=== PATIENT | male | born 1930 | race Caucasian/White ===

== ENCOUNTER 2018-05-04 15:41 | Emergency (ER) | payer MEDICARE ==
[2018-05-04 16:34] LABS: BASOPHILS # (AUTO) 0.1 10^3/uL (0.0-0.1); BASOPHILS % (AUTO) 0.7 %; EOSINOPHILS # (AUTO) 0.3 10^3/uL (0.0-0.7); EOSINOPHILS % (AUTO) 2.9 %; HGB - HEMOGLOBIN 14.3 g/dL (14.0-18.0); LYMPHOCYTES # (AUTO) 1.4 10^3/uL (1.5-3.5); LYMPHOCYTES % (AUTO) 15.9 %; MEAN CORPUSCULAR HEMOGLOBIN 33.3 pg (27.0-31.0); MEAN CORPUSCULAR HGB CONC 33.3 g/dL (32.0-36.0); MEAN CORPUSCULAR VOLUME 99.9 fL (80.0-94.0); MONOCYTES # (AUTO) 0.8 10^3/uL (0.0-1.0); MONOCYTES % (AUTO) 9.1 %; NEUTROPHILS # (AUTO) 6.3 10^3/uL (1.5-6.6); NEUTROPHILS % (AUTO) 71.4 %; PLT - PLATELET COUNT 305 10^3/uL (130-450); RED BLOOD COUNT 4.29 10^6/uL (4.70-6.10); RED CELL DISTRIBUTION WIDTH 13.3 % (12.0-15.0); WHITE BLOOD COUNT 8.8 x10^3/uL (4.8-10.8)
[2018-05-04 16:46] LABS: ALBUMIN 3.4 g/dL (3.2-5.5); BILIRUBIN,TOTAL 1.4 mg/dL (0.2-1.0); CREATININE 1.3 mg/dL (0.6-1.2); TOTAL PROTEIN 6.7 g/dL (6.7-8.2)
[2018-05-04] MEDS ORDERED: CYCLOBENZAPRINE 10 MG TABLET PO STA (17:42)
--- NOTE | 2018-05-04 17:44 | ED Physician Documentation ---
PD HPI BACK PAIN - Stated complaint Stated Complaint: BACK PAIN - Chief complaint Chief Complaint: Back Pain - History obtained from History obtained from: Patient, Family - History of Present Illness Timing - onset: How many days ago (several) Timing - duration: Days (several) Timing - details: Gradual onset Pain level max: 6 Pain level now: 6 Location: Upper, Right Quality: Pain, Spasm, Aching. No: Sharp, Tearing, Throbbing, Dull Associated symptoms: No: Fever, Weakness, Numbness, Incontinent of urine, Unable to urinate, Hematuria, Incontinent of stool Improves with: Rest Worsened by: Movement, Lifting Contributing factors: No: Lifting, Twisting, Trauma, Anticoagulated, Cancer, IVDA Similar symptoms before: Diagnosis (states has long history of back spasms. Feels similar.) Recently seen: Not recently seen - Additional information Additional information: Recently completed a drive from here to [place] and [facility]. Has been sleeping on different beds than usual. Review of Systems Ten Systems: 10 systems reviewed and negative Constitutional: denies: Fever, Chills Ears: denies: Ear pain Nose: denies: Rhinorrhea / runny nose, Congestion Throat: denies: Sore throat Cardiac: denies: Chest pain / pressure Respiratory: denies: Cough, Wheezing GI: denies: Abdominal Pain, Nausea, Vomiting, Diarrhea Skin: denies: Rash Musculoskeletal: denies: Neck pain Neurologic: denies: Focal weakness, Numbness PD PAST MEDICAL HISTORY - Past Medical History Past Medical History: Yes Cardiovascular: Atrial fibrillation HEENT: Glaucoma - Past Surgical History Past Surgical History: Yes General: Appendectomy HEENT: Tonsil/Adenoidectomy - Present Medications Home Medications: Ambulatory Orders Medication Instructions Recorded Confirmed Carvedilol [Coreg] 0 mg PO 05/04/18 Clopidogrel [Plavix] 0 mg PO DAILY 05/04/18 05/04/18 Cyclobenzaprine [Flexeril] 10 mg PO TID PRN #20 tablet 05/04/18 Hydrocodone/Acetaminophen 1 - 2 each PO Q6H PRN #14 tablet 05/04/18 [Hydrocodon-Acetaminophen 5-325] Latanoprost 05/04/18 Lisinopril 0 mg 05/04/18 Solifenacin Succinate [Vesicare] 0 mg PO 05/04/18 - Allergies Allergies/Adverse Reactions: Allergies Allergy/AdvReac Type Severity Reaction Status Date / Time No Known Drug Allergies Allergy Verified 05/04/18 16:14 - Social History Does the pt smoke?: No Smoking Status: Never smoker Does the pt drink ETOH?: Yes Does the pt have substance abuse?: No PD ED PE NORMAL - Vitals Vital signs reviewed: Yes - General General: Alert and oriented X 3, No acute distress - HEENT HEENT: PERRL, Moist mucous membranes, Pharynx benign - Neck Neck: Supple, no meningeal sign, Other (Full range of motion of the neck without significant pain) - Cardiac Cardiac: RRR, Strong equal pulses - Respiratory Respiratory: No respiratory distress, Clear bilaterally - Abdomen Abdomen: Soft, Non tender, Non distended - Back Back: No spinal TTP (No midline tenderness to palpation or percussion), Other ( Tender palpation to the right of midline approximately T4 through T12. No crepitus. No swelling. There is spasm present.) - Derm Derm: Warm and dry - Extremities Extremities: No calf tenderness / cord - Neuro Neuro: Alert and oriented X 3, bilingual administrative assistant 2-12 intact, No motor deficit, No sensory deficit Results - Vitals Vitals: Vital Signs - 24 hr 05/04/18 05/04/18 16:05 19:17 Temperature 36.4 C L Heart Rate 65 58 L Respiratory 16 16 Rate Blood Pressure 140/58 H 152/88 H O2 Saturation 96 99 Oxygen O2 Source Room air - Labs Labs: Laboratory Tests 05/04/18 05/04/18 05/04/18 16:24 16:24 16:24 WBC 8.8 RBC 4.29 L Hgb 14.3 Hct 42.8 MCV 99.9 H MCH 33.3 H MCHC 33.3 RDW 13.3 Plt Count 305 MPV 8.0 Neut # (Auto) 6.3 Lymph # (Auto) 1.[address] [place] # (Auto) 0.8 Eos # (Auto) 0.3 Baso # (Auto) 0.1 Absolute Nucleated RBC 0.00 Nucleated RBC % 0.0 Sodium 137 Potassium 4.1 Chloride 102 Carbon Dioxide 27 Anion Gap 8.0 BUN 17 Creatinine 1.3 H Estimated GFR (MDRD) 52 L Glucose 127 H Calcium 9.0 Total Bilirubin 1.4 H AST 21 ALT 18 Alkaline Phosphatase 65 Troponin I < 0.04 Total Protein 6.7 Albumin 3.4 Globulin 3.3 Albumin/Globulin Ratio 1.0 Lipase 22 PD MEDICAL DECISION MAKING - ED course Complexity details: re-evaluated patient, considered differential (no cauda equina, no spinal epidural abscess, no fracture, no aortic dissection or evidence of aneursym rupture), d/w patient, d/w family ED course: Patient is an 87-year-old male who presents to the emergency department what appears to be a thoracic back strain. Long-standing history of same Pain improved in the emergency department with pain medication and muscle relaxants. will drive him home. No evidence of acute bony injury. Breath sounds are equal bilaterally, no evidence of pneumothorax. No evidence of aortic dissection. Patient and family counseled regarding signs and symptoms for which I believe and urgent re-evaluation would be necessary. Patient with good understanding of and agreement to plan and is comfortable going home at this time This document was made in part using voice recognition software. While efforts are made to proofread this document, sound alike and grammatical errors may occur. - Sepsis Event Vital Signs: Vital Signs - 24 hr 05/04/18 05/04/18 16:05 19:17 Temperature 36.4 C L Heart Rate 65 58 L Respiratory 16 16 Rate Blood Pressure 140/58 H 152/88 H O2 Saturation 96 99 Oxygen O2 Source Room air Departure - Departure Disposition: 01 Home, Self Care Clinical Impression: Strain of mid-back Qualifiers: Encounter type: initial encounter Qualified Code(s): S29.012A - Strain of muscle and tendon of back wall of thorax, initial encounter Condition: Good Instructions: ED Spasm Muscle Follow-Up: Provider,Other [Primary Care Provider] - Within 1 week Prescriptions: Cyclobenzaprine [Flexeril] 10 mg PO TID PRN #20 tablet PRN Reason: Spasms Hydrocodone/Acetaminophen [Hydrocodon-Acetaminophen 5-325] 1 - 2 each PO Q6H PRN #14 tablet PRN Reason: pain Comments: Return if you worsen. this should improve over the next few days. Do not drink alcohol or drive while on narcotic pain medicine. Note that many narcotic pain relievers also contain tylenol/acetaminophen. Please ensure that your total dose of acetaminophen from all sources does not exceed 3 grams (3000mg) per day. You may constipated on this medication, take a stool softener such as "Colace" twice a day while you are on it. Also recommend a mbcn-fii-kjszgui laxative such as senna or MiraLAX any day that you do not have a bowel movement. If you received narcotic pain medication in the emergency department, do not drive or operate machinery for the next 24 hours. Discharge Date/Time: 05/04/18 19:43
[2018-05-04] MEDS ORDERED: MELOXICAM 7.5 MG TABLET PO SCH (18:00)
[2018-05-04] MEDS ORDERED: MELOXICAM 7.5 MG TABLET PO STA (18:00)
[2018-05-04] MEDS ORDERED: HYDROcod/ACETAM 5/325 MG TABLET PO STA (18:50)
[2018-05-04 19:18] VITALS: BP 152/88
== END 2018-05-04 19:43 | disposition home or self-care (01) ==
LOC: ED 15:41
DX: S29.012A Strain of muscle and tendon of back wall of thorax, initial encounter (principal)
CPT/HCPCS: 80053; 83690; 84484; 85025; 93005; 99283; A9270

== ENCOUNTER 2018-05-24 13:42 | Emergency (ER) | payer MEDICARE ==
[2018-05-24 13:49] VITALS: BP 136/98
--- NOTE | 2018-05-24 14:47 | XRAY Report ---
Procedure Date: 05/24/2018 Accession Number: [id number] / [id number] Procedure: XR - Foot 3 View RT CPT Code: FULL RESULT: EXAM: RIGHT FOOT RADIOGRAPHY EXAM DATE: 05/24/2018 02:24 PM. CLINICAL HISTORY: Fall, R foot pain, swelling. COMPARISON: None. TECHNIQUE: 3 views. FINDINGS: Bones: There is a 5 mm linear ossific density immediately lateral to the first metatarsal head which is irregular in medial contour and separate from the lateral first metatarsal sesamoid bone. No other fracture or focal bone lesion is identified. Joints: Suggestion of mild widening of the distal first intermetatarsal space. Synovial joint spaces are preserved. Soft Tissues: Suggestion of mild soft tissue swelling about the first metatarsal-phalangeal joint. IMPRESSION: Probable first deep transverse metatarsal ligament avulsion from the lateral aspect of the first metatarsal head. Clinical correlation is requested. MRI could be used to further assess. RADIA
--- NOTE | 2018-05-24 15:08 | ED Physician Documentation ---
PD HPI LOWER EXT INJURY - Stated complaint Stated Complaint: RT FOOT PX - Chief complaint Chief Complaint: Ext Problem - History obtained from History obtained from: Patient, Family - History of Present Illness PD HPI LOW EXT INJURY LOCATION: Right, Foot Type of injury: Twist Where injury occurred: Home Timing - onset: Other (a few days ago) Timing - duration: Days Timing - details: Abrupt onset Pain level max: 7 Pain level now: 5 Improved by: Rest, Ice, Immobilization Worsened by: Moving, Palpating Associated symptoms: Swelling. No: Weakness, Numbness, Tingling Similar symptoms before: Has not had sx before Recently seen: Not recently seen - Additional information Additional information: Patient is visiting from [place] Review of Systems Constitutional: denies: Fever, Chills GI: denies: Vomiting Skin: denies: Rash Musculoskeletal: denies: Neck pain, Back pain Neurologic: denies: Focal weakness, Numbness, Headache PD PAST MEDICAL HISTORY - Past Medical History Past Medical History: Yes Cardiovascular: Atrial fibrillation HEENT: Glaucoma - Past Surgical History Past Surgical History: Yes General: Appendectomy HEENT: Tonsil/Adenoidectomy - Present Medications Home Medications: Ambulatory Orders Medication Instructions Recorded Confirmed Carvedilol [Coreg] 0 mg PO 05/04/18 Clopidogrel [Plavix] 0 mg PO DAILY 05/04/18 05/04/18 Cyclobenzaprine [Flexeril] 10 mg PO TID PRN #20 tablet 05/04/18 Hydrocodone/Acetaminophen 1 - 2 each PO Q6H PRN #14 tablet 05/04/18 [Hydrocodon-Acetaminophen 5-325] Latanoprost 05/04/18 Lisinopril 0 mg 05/04/18 Solifenacin Succinate [Vesicare] 0 mg PO 05/04/18 - Allergies Allergies/Adverse Reactions: Allergies Allergy/AdvReac Type Severity Reaction Status Date / Time No Known Drug Allergies Allergy Verified 05/24/18 13:49 - Social History Does the pt smoke?: No Smoking Status: Never smoker Does the pt drink ETOH?: Yes Does the pt have substance abuse?: No - POLST Patient has POLST: No PD ED PE NORMAL - Vitals Vital signs reviewed: Yes - General General: Alert and oriented X 3, No acute distress - HEENT HEENT: Moist mucous membranes - Derm Derm: Warm and dry - Extremities Extremities: Other (R foot - diffuse swelling with tenderness along the 1st MTP. NVI. ) - Neuro Neuro: Alert and oriented X 3 Results - Vitals Vitals: Vital Signs - 24 hr 05/24/18 13:45 Temperature 36.8 C Heart Rate 68 Respiratory 20 Rate Blood Pressure 136/98 H O2 Saturation 98 Oxygen O2 Source Room air - Rads (name of study) R foot xray Radiology: Prelim report reviewed, EMP read contemporaneously, See rad report ( Probable first deep transverse metatarsal ligament avulsion from the lateral aspect of the first metatarsal head. Clinical correlation is requested. MRI could be used to further assess. ) PD MEDICAL DECISION MAKING - ED course Complexity details: reviewed results, re-evaluated patient, considered differential, d/w patient, d/w family ED course: Patient is an 87-year-old male with a right foot injury a few days ago, continued swelling and pain since that time. No evidence of infection. Appears to have a ligamentous disruption. Placed in a walking boot and will have him follow-up closely with orthopedics for further evaluation. Neurovascularly intact. Patient counseled regarding signs and symptoms for which I believe and urgent re-evaluation would be necessary. Patient with good understanding of and agreement to plan and is comfortable going home at this time This document was made in part using voice recognition software. While efforts are made to proofread this document, sound alike and grammatical errors may occur. - Sepsis Event Vital Signs: Vital Signs - 24 hr 05/24/18 13:45 Temperature 36.8 C Heart Rate 68 Respiratory 20 Rate Blood Pressure 136/98 H O2 Saturation 98 Oxygen O2 Source Room air Departure - Departure Disposition: 01 Home, Self Care Clinical Impression: Foot sprain Qualifiers: Encounter type: initial encounter Laterality: left Qualified Code(s): S93.602A - Unspecified sprain of left foot, initial encounter Condition: Good Instructions: ED Sprain Foot Follow-Up: [facility] [Provider Group] - Within 1 week Comments: Wear the boot until released by orthopedics. It appears that you have an avulsion of the first the deep transverse metatarsal ligament in your foot. Return if you worsen. Call orthopedics for an appointment within the next week Discharge Date/Time: 05/24/18 15:50
== END 2018-05-24 15:50 | disposition home or self-care (01) ==
LOC: ED 13:42
DX: S93.601A Unspecified sprain of right foot, initial encounter (principal); X50.1XXA Overexertion from prolonged static or awkward postures, initial encounter; Y92.009 Unspecified place in unspecified non-institutional (private) residence as the place of occurrence of the external cause; I48.91 Unspecified atrial fibrillation; Z79.02 Long term (current) use of antithrombotics/antiplatelets
CPT/HCPCS: 99282; 99283

== ENCOUNTER 2018-05-26 12:13 | Emergency (ER) | payer MEDICARE ==
[2018-05-26 14:18] LABS: BASOPHILS # (AUTO) 0.1 10^3/uL (0.0-0.1); BASOPHILS % (AUTO) 0.7 %; EOSINOPHILS # (AUTO) 0.1 10^3/uL (0.0-0.7); EOSINOPHILS % (AUTO) 0.6 %; HGB - HEMOGLOBIN 14.9 g/dL (14.0-18.0); LYMPHOCYTES # (AUTO) 0.8 10^3/uL (1.5-3.5); LYMPHOCYTES % (AUTO) 7.6 %; MEAN CORPUSCULAR HEMOGLOBIN 33.3 pg (27.0-31.0); MEAN CORPUSCULAR HGB CONC 34.2 g/dL (32.0-36.0); MEAN CORPUSCULAR VOLUME 97.3 fL (80.0-94.0); MEAN PLATELET VOLUME 8.3 fL (7.4-11.4); MONOCYTES # (AUTO) 1.3 10^3/uL (0.0-1.0); MONOCYTES % (AUTO) 11.8 %; NEUTROPHILS # (AUTO) 8.5 10^3/uL (1.5-6.6); NEUTROPHILS % (AUTO) 79.3 %; PLT - PLATELET COUNT 205 10^3/uL (130-450); RED BLOOD COUNT 4.48 10^6/uL (4.70-6.10); RED CELL DISTRIBUTION WIDTH 13.3 % (12.0-15.0); WHITE BLOOD COUNT 10.7 x10^3/uL (4.8-10.8)
[2018-05-26 14:31] LABS: ALBUMIN 3.6 g/dL (3.2-5.5); ALBUMIN/GLOBULIN RATIO 1.1 (1.0-2.2); BILIRUBIN,TOTAL 2.9 mg/dL (0.2-1.0); CALCIUM 8.8 mg/dL (8.5-10.3); CREATININE 1.1 mg/dL (0.6-1.2)
[2018-05-26] MEDS ORDERED: SODIUM CHLORIDE 0.9% 1,000 ML IV ONE (15:29)
[2018-05-26] MEDS ORDERED: MORPHINE 2 MG/ML SYRINGE IVP STA (15:29)
--- NOTE | 2018-05-26 15:32 | ED Physician Documentation ---
History of Present Illness - Stated complaint Stated Complaint: GROIN PX - Chief complaint Chief Complaint: General - History obtained from History obtained from: Patient, Family - History of Present Illness Timing: Yesterday Pain level max: 7 Pain level now: 6 Improved by: Rest Worsened by: Movement - Additonal information Additional information: Patient is an 87-year-old male who was recently for a ligament avulsion in the right foot. He was placed in a walking boot on the right foot. He has now developed left groin pain, worse with movement and better with rest. He also feels generally weak all over. Denies any urinary symptoms. No fevers. No cough. No back pain. No abdominal pain. No chest pain. No shortness of breath. Review of Systems Ten Systems: 10 systems reviewed and negative Constitutional: denies: Fever, Chills Ears: denies: Ear pain Nose: denies: Rhinorrhea / runny nose, Congestion Respiratory: denies: Cough GI: denies: Abdominal Pain, Nausea, Vomiting, Diarrhea Skin: denies: Rash Musculoskeletal: denies: Neck pain, Back pain Neurologic: denies: Focal weakness, Numbness PD PAST MEDICAL HISTORY - Past Medical History Cardiovascular: Atrial fibrillation HEENT: Glaucoma - Past Surgical History Past Surgical History: Yes General: Appendectomy HEENT: Tonsil/Adenoidectomy - Present Medications Home Medications: Ambulatory Orders Medication Instructions Recorded Confirmed Carvedilol [Coreg] 0 mg PO 05/04/18 Clopidogrel [Plavix] 0 mg PO DAILY 05/04/18 05/04/18 Cyclobenzaprine [Flexeril] 10 mg PO TID PRN #20 tablet 05/04/18 Hydrocodone/Acetaminophen 1 - 2 each PO Q6H PRN #14 tablet 05/04/18 [Hydrocodon-Acetaminophen 5-325] Latanoprost 05/04/18 Lisinopril 0 mg 05/04/18 Solifenacin Succinate [Vesicare] 0 mg PO 05/04/18 Hydrocodone/Acetaminophen 1 each PO Q6H PRN #14 tablet 05/26/18 [Hydrocodon-Acetaminophen 5-325] Meloxicam [Mobic] 7.5 mg PO BID PRN #20 tablet 05/26/18 - Allergies Allergies/Adverse Reactions: Allergies Allergy/AdvReac Type Severity Reaction Status Date / Time No Known Drug Allergies Allergy Verified 05/26/18 12:37 - Social History Does the pt smoke?: No Smoking Status: Never smoker Does the pt drink ETOH?: Yes Does the pt have substance abuse?: No - POLST Patient has POLST: No PD ED PE NORMAL - Vitals Vital signs reviewed: Yes - General General: Alert and oriented X 3, No acute distress - HEENT HEENT: Moist mucous membranes - Neck Neck: Supple, no meningeal sign - Cardiac Cardiac: RRR - Respiratory Respiratory: No respiratory distress, Clear bilaterally - Abdomen Abdomen: Soft, Non tender, Non distended - Derm Derm: Warm and dry - Extremities Extremities: Other (Tender palpation over the left anterior thigh, proximal near the hip flexors. Pain is worse with internal and external rotation as well as flexion and extension. Neurovascularly intact. Good pulses.) - Neuro Neuro: Alert and oriented X 3 - Psych Psych: Normal mood, Normal affect Results - Vitals Vitals: Vital Signs - 24 hr 05/26/18 05/26/18 12:33 17:00 Temperature 36.8 C Heart Rate 70 97 Respiratory 18 16 Rate Blood Pressure 134/60 H 165/91 H O2 Saturation 98 95 Oxygen O2 Source Room air - Labs Labs: Laboratory Tests 05/26/18 05/26/18 05/26/18 14:10 14:10 17:00 WBC 10.7 RBC 4.48 L Hgb 14.9 Hct 43.6 MCV 97.3 H MCH 33.3 H MCHC 34.2 RDW 13.3 Plt Count 205 MPV 8.3 Neut # (Auto) 8.5 H Lymph # (Auto) 0.8 L [place] # (Auto) 1.3 H Eos # (Auto) 0.1 Baso # (Auto) 0.1 Absolute Nucleated RBC 0.00 Nucleated RBC % 0.0 Sodium 136 Potassium 3.8 Chloride 102 Carbon Dioxide 27 Anion Gap 7.0 BUN 18 Creatinine 1.1 Estimated GFR (MDRD) 63 L Glucose 160 H Calcium 8.8 Total Bilirubin 2.9 H AST 20 ALT 21 Alkaline Phosphatase 67 Total Protein 7.0 Albumin 3.6 Globulin 3.4 Albumin/Globulin Ratio 1.1 Lipase 24 Urine Color YELLOW Urine Clarity HAZY Urine pH 6.0 Ur Specific [place] 1.020 Urine Protein TRACE Urine Glucose (UA) NEGATIVE Urine Ketones NEGATIVE Urine Occult Blood MODERATE H Urine Nitrite NEGATIVE Urine Bilirubin NEGATIVE Urine Urobilinogen 1 (NORMAL) Ur Leukocyte Esterase SMALL H Urine RBC TNTC H Urine WBC >25 H Urine WBC Clumps PRESENT Ur Squamous Epith Cells FEW Squamous Urine Bacteria Many H Urine Mucus Few Strands Ur Microscopic Review INDICATED Urine Culture Comments INDICATED - Rads (name of study) L hip xray Radiology: Prelim report reviewed, EMP read contemporaneously, See rad report ( Degenerative change bilateral hips significantly worse on the left without superimposed acute findings. ) PD MEDICAL DECISION MAKING - ED course Complexity details: reviewed old records, reviewed results, re-evaluated patient , considered differential, d/w patient, d/w family ED course: Patient is an 87-year-old male who presents with left hip pain. Appears to be secondary to arthritis and overuse since he is wearing a boot on the right foot. He was given a walker in the emergency department and is ambulating quite well with this. He feels much better. Will prescribe pain medications for home. He was also given IV fluids and does not feel as weak. No acute laboratory findings. Patient and family counseled regarding signs and symptoms for which I believe and urgent re-evaluation would be necessary. Patient with good understanding of and agreement to plan and is comfortable going home at this time This document was made in part using voice recognition software. While efforts are made to proofread this document, sound alike and grammatical errors may occur. No cellulitis, no septic arthritis, no DVT - Sepsis Event Vital Signs: Vital Signs - 24 hr 05/26/18 05/26/18 12:33 17:00 Temperature 36.8 C Heart Rate 70 97 Respiratory 18 16 Rate Blood Pressure 134/60 H 165/91 H O2 Saturation 98 95 Oxygen O2 Source Room air Departure - Departure Disposition: 01 Home, Self Care Clinical Impression: Hip arthritis Condition: Good Instructions: ED Degenerative Joint Disease Follow-Up: Dieter Reilly MD [Primary Care Provider] - Within 1 week Prescriptions: Hydrocodone/Acetaminophen [Hydrocodon-Acetaminophen 5-325] 1 each PO Q6H PRN # 14 tablet PRN Reason: pain Meloxicam [Mobic] 7.5 mg PO BID PRN #20 tablet PRN Reason: Pain Comments: Return if you worsen. Use the walker and the boot at home. Do not drink alcohol or drive while on narcotic pain medicine. Note that many narcotic pain relievers also contain tylenol/acetaminophen. Please ensure that your total dose of acetaminophen from all sources does not exceed 3 grams (3000mg) per day. You may constipated on this medication, take a stool softener such as "Colace" twice a day while you are on it. Also recommend a gofo-tbn-ddoedyp laxative such as senna or MiraLAX any day that you do not have a bowel movement. If you received narcotic pain medication in the emergency department, do not drive or operate machinery for the next 24 hours. Discharge Date/Time: 05/26/18 18:06
--- NOTE | 2018-05-26 16:10 | XRAY Report ---
Procedure Date: 05/26/2018 Accession Number: [id number] / [id number] Procedure: XR - Hip w/Pelvis 2-3V LT CPT Code: FULL RESULT: EXAM: LEFT HIP AND PELVIS RADIOGRAPHY EXAM DATE: 05/26/2018 03:56 PM. HISTORY: L hip pain. COMPARISONS: None. TECHNIQUE: 1 view of the pelvis and 1 view of the left hip. FINDINGS: Bones: no fracture or bone lesion. Joints: There is advanced degenerative change of the left hip with joint space narrowing, spurring, subchondral sclerosis and cyst formation. There is less severe degenerative change of the right hip. No findings of dislocation. Soft Tissues: Unremarkable IMPRESSION: Degenerative change bilateral hips significantly worse on the left without superimposed acute findings. RADIA
[2018-05-26 17:01] VITALS: BP 165/91
[2018-05-26 17:30] LABS: BILIRUBIN,URINE NEGATIVE (NEGATIVE); GLUCOSE, URINE (UA) NEGATIVE (NEGATIVE); KETONES,URINE (UA) NEGATIVE (NEGATIVE); LEUKOCYTE ESTERASE, URINE SMALL (NEGATIVE); NITRITE,URINE NEGATIVE (NEGATIVE); OCCULT BLOOD,URINE MODERATE (NEGATIVE); PROTEIN,URINE TRACE mg/dL (NEGATIVE); UROBILINOGEN,URINE 1 (NORMAL) E.U./dL (NORMAL)
[2018-05-26 17:31] LABS: CLARITY,URINE HAZY (CLEAR)
[2018-05-26 17:36] LABS: BACTERIA,URINE Many /HPF (None Seen); MUCUS,URINE Few Strands; RBC,URINE TNTC /HPF (0-5); SQUAMOUS EPITHELIAL CELL,UR FEW Squamous (<= Few); WBC CLUMPS,URINE PRESENT
== END 2018-05-26 18:06 | disposition home or self-care (01) ==
LOC: ED 12:13
DX: M16.10 Unilateral primary osteoarthritis, unspecified hip (principal); I48.91 Unspecified atrial fibrillation; Z79.02 Long term (current) use of antithrombotics/antiplatelets
CPT/HCPCS: 36415; 73502; 80053; 81001; 83690; 85025; 87086; 96361; 96374; 99283; 99284; J2270; 81003; 87181

== ENCOUNTER 2018-05-27 16:08 | Emergency (ER) | payer MEDICARE ==
--- NOTE | 2018-05-27 18:56 | ED Physician Documentation ---
PD HPI LOWER EXT INJURY - Stated complaint Stated Complaint: R LEG PAIN/SWELLING - Chief complaint Chief Complaint: General - History obtained from History obtained from: Patient - History of Present Illness PD HPI LOW EXT INJURY LOCATION: Right, Ankle Type of injury: Other (had pain in right ankle with some swelling about a week ago. Not aware of significant injury per se. Seen by PMD and had xray of ankle/ foot, suggesting likely torn ligament at first MT head. Put into walking boot for it. Has had increasing redness, swelling and pain of the right ankle. Had been referred to Ortho and is seeing them in office today. Ortho called over to ER that he is referring patient to ER for concern of other causes of the the pain rather than torn ligament. Concern for DVT with pain in calf and up to knee now (though on Coumadin for atrial fib).). No: Fall, Twist Where injury occurred: Home Timing - onset: How many weeks ago (1) Timing - duration: Weeks (1) Timing - details: Gradual onset, Still present (worsening pain, swelling, and redness of ankle and lower leg the past week.) Improved by: No: Rest Worsened by: Palpating Associated symptoms: Swelling, Discolored (redness). No: Weakness, Numbness Contributing factors: Anticoagulated. No: Prior ortho surgery Similar symptoms before: Has not had sx before Recently seen: Clinic (seen by PMD 5 days ago and then by Ortho today.) Review of Systems Constitutional: denies: Fever, Chills, Myalgias Nose: denies: Rhinorrhea / runny nose, Congestion Throat: denies: Sore throat Respiratory: denies: Cough GI: denies: Nausea, Vomiting, Diarrhea Musculoskeletal: denies: Neck pain, Back pain PD PAST MEDICAL HISTORY - Past Medical History Cardiovascular: Atrial fibrillation HEENT: Glaucoma Musculoskeletal: None - Past Surgical History Past Surgical History: Yes General: Appendectomy HEENT: Tonsil/Adenoidectomy - Present Medications Home Medications: Ambulatory Orders Medication Instructions Recorded Confirmed Carvedilol [Coreg] 0 mg PO 05/04/18 Clopidogrel [Plavix] 0 mg PO DAILY 05/04/18 05/04/18 Cyclobenzaprine [Flexeril] 10 mg PO TID PRN #20 tablet 05/04/18 Hydrocodone/Acetaminophen 1 - 2 each PO Q6H PRN #14 tablet 05/04/18 [Hydrocodon-Acetaminophen 5-325] Latanoprost 05/04/18 Lisinopril 0 mg 05/04/18 Solifenacin Succinate [Vesicare] 0 mg PO 05/04/18 Hydrocodone/Acetaminophen 1 each PO Q6H PRN #14 tablet 05/26/18 [Hydrocodon-Acetaminophen 5-325] Meloxicam [Mobic] 7.5 mg PO BID PRN #20 tablet 05/26/18 Apixaban [Eliquis] 2.5 mg PO 05/27/18 05/27/18 Cephalexin [Keflex] 500 mg PO QID #24 capsule 05/27/18 - Allergies Allergies/Adverse Reactions: Allergies Allergy/AdvReac Type Severity Reaction Status Date / Time No Known Drug Allergies Allergy Verified 05/27/18 16:15 - Social History Does the pt smoke?: No Smoking Status: Never smoker Does the pt drink ETOH?: Yes Does the pt have substance abuse?: No - POLST Patient has POLST: No PD ED PE NORMAL - Vitals Vital signs reviewed: Yes - General General: Alert and oriented X 3, No acute distress, Well developed/nourished - Neck Neck: Supple, no meningeal sign, No adenopathy - Respiratory Respiratory: Clear bilaterally - Abdomen Abdomen: Soft, Non tender - Back Back: No CVA TTP - Derm Derm: Normal color, Warm and dry - Extremities Extremities: Other (right ankle with redness, effusion, tenderness, warmth. the redness extends proximally to lower leg, with some redness anterior more up to just below knee. No knee effusion. Popliteal area is slightly tender without effusion nor swelling. ) - Neuro Neuro: Alert and oriented X 3, No motor deficit, No sensory deficit, Normal speech Results - Vitals Vitals: Vital Signs - 24 hr 05/27/18 05/27/18 16:12 21:13 Temperature 38 C H 37.5 C Heart Rate 89 84 Respiratory 20 22 Rate Blood Pressure 144/68 H 146/92 H O2 Saturation 96 Oxygen O2 Source Room air - Labs Labs: Microbiology 05/27/18 19:35 Body Fluid Culture - Preliminary Synovial Fluid Laboratory Tests 05/27/18 05/27/18 05/27/18 19:33 19:33 19:33 WBC 11.5 H RBC 4.41 L Hgb 14.4 Hct 43.1 MCV 97.7 H MCH 32.7 H MCHC 33.5 RDW 13.4 Plt Count 220 MPV 8.4 Neut # (Auto) 8.7 H Lymph # (Auto) 1.2 L [place] # (Auto) 1.4 H Eos # (Auto) 0.1 Baso # (Auto) 0.1 Absolute Nucleated RBC 0.00 Nucleated RBC % 0.0 ESR 24 H Sodium 134 L Potassium 3.8 Chloride 100 L Carbon Dioxide 26 Anion Gap 8.0 BUN 18 Creatinine 1.1 Estimated GFR (MDRD) 63 L Glucose 130 H Lactic Acid Calcium 8.7 Magnesium 2.0 Total Bilirubin 1.8 H AST 24 ALT 22 Alkaline Phosphatase 74 Total Protein 6.9 Albumin 3.5 Globulin 3.4 Albumin/Globulin Ratio 1.0 Lipase 26 Fluid Source Fluid Color Fluid Clarity Fluid WBC Fluid RBC Fluid Neutrophils % Fluid Lymphocytes % Fluid Monocytes % Fld Mesothelial Cell % Fluid Crystals 05/27/18 05/27/18 05/27/18 19:33 19:33 19:33 WBC RBC Hgb Hct MCV MCH MCHC RDW Plt Count MPV Neut # (Auto) Lymph # (Auto) [place] # (Auto) Eos # (Auto) Baso # (Auto) Absolute Nucleated RBC Nucleated RBC % ESR Sodium Potassium Chloride Carbon Dioxide Anion Gap BUN Creatinine Estimated GFR (MDRD) Glucose Lactic Acid 1.0 Calcium Magnesium Total Bilirubin AST ALT Alkaline Phosphatase Total Protein Albumin Globulin Albumin/Globulin Ratio Lipase Fluid Source SYNOVIAL Fluid Color BLOODY Fluid Clarity BLOODY Fluid WBC HOME HEALTH SPEECH THERAPIST Fluid RBC HOME HEALTH SPEECH THERAPIST Fluid Neutrophils % 83.0 Fluid Lymphocytes % 8.0 Fluid Monocytes % 9.0 Fld Mesothelial Cell % Not Reportable Fluid Crystals NONE SEEN - Rads (name of study) duplex right leg Radiology: Prelim report reviewed (no DVT) Procedures - Arthrocentesis Joint: Ankle, Right Preparation: Consent obtained (verbal), Sterile prep and drape Anesthesia: Marcaine 0.5% Fluid: Clear (mostly clear with some bloody appearance (got drop of blood soft tissue prior to getting into joint space)), Sent for cell count (lab said they could not do cell count due to drop of blood in the syringe.), Sent for crystals , Sent for culture, Fluid obtained - cc (4), Sent for gram stain PD MEDICAL DECISION MAKING - ED course Complexity details: reviewed results (no crystals seen, so not gout, though could fit clinically. But redness is beyond margin of joint. Consider cellulitis. Consider septic joint. ), considered differential, d/w patient, d/w technical marketing consultant (Dr. Skinner, who is now conference services director - to have patient seen in office in 1-2 days. Low prob of septic joint per Ortho, since labs are good. ) - Sepsis Event Vital Signs: Vital Signs - 24 hr 05/27/18 05/27/18 16:12 21:13 Temperature 38 C H 37.5 C Heart Rate 89 84 Respiratory 20 22 Rate Blood Pressure 144/68 H 146/92 H O2 Saturation 96 Oxygen O2 Source Room air Departure - Departure Disposition: Home, Self Care Clinical Impression: Cellulitis of right ankle Condition: Stable Record reviewed to determine appropriate education?: Yes Instructions: ED Infec Skin Cellulitis Follow-Up: [facility] [Provider Group] Prescriptions: Cephalexin [Keflex] 500 mg PO QID #24 capsule Comments: I talked with the orthopedist and they want us to give you antibiotics for the apparent skin infection at least and follow-up in the office in the next 1-2 days, call tomorrow for an appointment. I will give time for the culture result to come back and see if there is any signs of infection in the joint itself. There are no crystals seen on the fluid analysis so it does not look like gout. Continue usual medications. Add cephalexin antibiotic as directed. Add pain medicine if needed. Discharge Date/Time: 05/27/18 21:55
--- NOTE | 2018-05-27 19:00 | Ultrasound Report ---
Procedure Date: 05/27/2018 Accession Number: [id number] / [id number] Procedure: US - Duplex Ext Veins Right CPT Code: FULL RESULT: EXAM: RIGHT LOWER EXTREMITY VENOUS ULTRASOUND EXAM DATE: 05/27/2018 06:41 PM. CLINICAL HISTORY: Tenderness/pain behind knee and groin. COMPARISON: None. TECHNIQUE: Real-time sonographic vascular imaging was performed by the medical receptionist assistant through the lower extremity utilizing both color-flow and Doppler spectral analysis. Multiple it sales representative static images were saved for review. FINDINGS: Common Femoral Vein (CFV): Normal. CFV-GSV Junction: Normal. Profunda Femoral Vein (PFV): Normal. Femoral Vein (FV) Prox: Normal. Femoral Vein (FV) Mid: Normal. Femoral Vein (FV) Dist: Normal. Popliteal Vein: Normal. Posterior Tibial Veins: Normal. Peroneal Veins: Normal. Contralateral Side CFV: Normal. Other: None. IMPRESSION: No evidence for deep venous thrombosis. RADIA
[2018-05-27 19:38] LABS: BASOPHILS # (AUTO) 0.1 10^3/uL (0.0-0.1); BASOPHILS % (AUTO) 0.7 %; EOSINOPHILS # (AUTO) 0.1 10^3/uL (0.0-0.7); EOSINOPHILS % (AUTO) 0.6 %; HGB - HEMOGLOBIN 14.4 g/dL (14.0-18.0); LYMPHOCYTES # (AUTO) 1.2 10^3/uL (1.5-3.5); LYMPHOCYTES % (AUTO) 10.2 %; MEAN CORPUSCULAR HEMOGLOBIN 32.7 pg (27.0-31.0); MEAN CORPUSCULAR HGB CONC 33.5 g/dL (32.0-36.0); MEAN CORPUSCULAR VOLUME 97.7 fL (80.0-94.0); MEAN PLATELET VOLUME 8.4 fL (7.4-11.4); MONOCYTES # (AUTO) 1.4 10^3/uL (0.0-1.0); MONOCYTES % (AUTO) 12.6 %; NEUTROPHILS # (AUTO) 8.7 10^3/uL (1.5-6.6); NEUTROPHILS % (AUTO) 75.9 %; PLT - PLATELET COUNT 220 10^3/uL (130-450); RED BLOOD COUNT 4.41 10^6/uL (4.70-6.10); RED CELL DISTRIBUTION WIDTH 13.4 % (12.0-15.0); WHITE BLOOD COUNT 11.5 x10^3/uL (4.8-10.8)
[2018-05-27 19:51] LABS: ALBUMIN 3.5 g/dL (3.2-5.5); BILIRUBIN,TOTAL 1.8 mg/dL (0.2-1.0); CALCIUM 8.7 mg/dL (8.5-10.3); CREATININE 1.1 mg/dL (0.6-1.2); TOTAL PROTEIN 6.9 g/dL (6.7-8.2)
[2018-05-27] MEDS ORDERED: cephALEXin 250 MG CAPSULE PO STA (20:12)
[2018-05-27 20:32] LABS: BF COLOR BLOODY; BF SOURCE SYNOVIAL
[2018-05-27 21:14] VITALS: BP 146/92
[2018-05-27] MEDS ORDERED: HYDROcod/ACET 5/325 Prepack 4 PO STA (21:38)
== END 2018-05-27 21:55 | disposition home or self-care (01) ==
LOC: ED 16:08
DX: I48.91 Unspecified atrial fibrillation (principal); Z79.01 Long term (current) use of anticoagulants; L03.115 Cellulitis of right lower limb
CPT/HCPCS: 20605; 36415; 80053; 83605; 83690; 83735; 85025; 85651; 87070; 87205; 89051; 89060; 93971; 99283; A9270

== ENCOUNTER 2018-06-01 12:45 | Emergency (ER) | payer MEDICARE ==
--- NOTE | 2018-06-01 13:24 | ED Physician Documentation ---
PD HPI SKIN - Stated complaint Stated Complaint: FEET SWELLING - History obtained from History obtained from: Patient - History of Present Illness Timing - onset: Yesterday (he had had swelling and redness in right ankle last week and seen in ER with tap of ankle and labs done. Culture subsequently did not have growth. A US did have growth though and he is on Doxycycline for UTI. Having redness and swelling of the left ankle the past couple days.) Timing - duration: Days Timing - details: Gradual onset, Still present Location: LLE Quality / character: Painful, Discolored (red), Swelling Associated symptoms: No: Fever, Myalgias, N/V/D Contributing factors: No: Recent illness Similar symptoms before: No diagnosis Recently seen: Emergency Dept Review of Systems Constitutional: denies: Fever, Chills GI: denies: Nausea, Vomiting, Diarrhea PD PAST MEDICAL HISTORY - Past Medical History Cardiovascular: Atrial fibrillation HEENT: Glaucoma Musculoskeletal: None - Past Surgical History Past Surgical History: Yes General: Appendectomy HEENT: Tonsil/Adenoidectomy - Present Medications Home Medications: Ambulatory Orders Medication Instructions Recorded Confirmed Carvedilol [Coreg] 0 mg PO 05/04/18 Clopidogrel [Plavix] 0 mg PO DAILY 05/04/18 05/04/18 Cyclobenzaprine [Flexeril] 10 mg PO TID PRN #20 tablet 05/04/18 Hydrocodone/Acetaminophen 1 - 2 each PO Q6H PRN #14 tablet 05/04/18 [Hydrocodon-Acetaminophen 5-325] Latanoprost 05/04/18 Lisinopril 0 mg 05/04/18 Solifenacin Succinate [Vesicare] 0 mg PO 05/04/18 Hydrocodone/Acetaminophen 1 each PO Q6H PRN #14 tablet 05/26/18 [Hydrocodon-Acetaminophen 5-325] Meloxicam [Mobic] 7.5 mg PO BID PRN #20 tablet 05/26/18 Apixaban [Eliquis] 2.5 mg PO 05/27/18 05/27/18 Cephalexin [Keflex] 500 mg PO QID #24 capsule 05/27/18 Dexamethasone [Decadron] 4 mg PO DAILY #5 tablet 06/01/18 HYDROcod/ACETAM 5/325 [[place] 5/325] 1 tab PO Q6H PRN #15 tablet 06/01/18 - Allergies Allergies/Adverse Reactions: Allergies Allergy/AdvReac Type Severity Reaction Status Date / Time No Known Drug Allergies Allergy Verified 05/27/18 16:15 - Social History Does the pt smoke?: No Smoking Status: Never smoker Does the pt drink ETOH?: Yes Does the pt have substance abuse?: No - POLST Patient has POLST: No PD ED PE NORMAL - Vitals Vital signs reviewed: Yes - General General: Alert and oriented X 3, No acute distress, Well developed/nourished - Cardiac Cardiac: RRR, No murmur - Respiratory Respiratory: Clear bilaterally - Derm Derm: Normal color, Warm and dry - Extremities Extremities: Other (right ankle with some mild swelling and redness still, but improved from few days ago (I had seen him). Left ankle and lower leg with some redness and effusion now as well. Knees without redness nor swelling, no effusion. ) Results - Vitals Vitals: Vital Signs - 24 hr 06/01/18 06/01/18 13:23 14:49 Temperature 36.7 C Heart Rate 73 65 Respiratory 18 18 Rate Blood Pressure 124/106 H 158/80 H O2 Saturation 98 97 Oxygen O2 Source Room air PD MEDICAL DECISION MAKING - ED course Complexity details: reviewed old records, reviewed results, considered differential (had swelling of right foot and ankle and had tap of it with negative culture. Now with the left one having similar symptoms. Presume inflammatory condition such as gout. I did not feel I needed to tap the left one now. ), d/w patient - Sepsis Event Vital Signs: Vital Signs - 24 hr 06/01/18 06/01/18 13:23 14:49 Temperature 36.7 C Heart Rate 73 65 Respiratory 18 18 Rate Blood Pressure 124/106 H 158/80 H O2 Saturation 98 97 Oxygen O2 Source Room air Departure - Departure Disposition: 01 Home, Self Care Clinical Impression: Painful swelling of joint Condition: Stable Record reviewed to determine appropriate education?: Yes Prescriptions: Dexamethasone [Decadron] 4 mg PO DAILY #5 tablet HYDROcod/ACETAM 5/325 [[place] 5/325] 1 tab PO Q6H PRN #15 tablet PRN Reason: Pain Comments: Continue your usual medications. Add Decadron steroid anti-inflammatory daily for the next several days. For the pain add Tylenol or hydrocodone if needed for pains. See if the swelling and pain of the ankles and knees go down over the next few days. Elevate and rest them often. Discharge Date/Time: 06/01/18 16:23
[2018-06-01] MEDS ORDERED: HYDROcod/ACETAM 5/325 MG TABLET PO STA (14:10)
[2018-06-01] MEDS ORDERED: DEXAMETHASONE 10 MG/ML VIAL PO STA (14:10)
[2018-06-01 14:52] VITALS: BP 158/80
== END 2018-06-01 16:23 | disposition home or self-care (01) ==
LOC: ED 12:45
DX: M25.472 Effusion, left ankle (principal); M25.572 Pain in left ankle and joints of left foot; I48.91 Unspecified atrial fibrillation; Z79.02 Long term (current) use of antithrombotics/antiplatelets
CPT/HCPCS: 99283; A9270

== ENCOUNTER 2019-05-23 11:38 | Emergency (ER) | payer MEDICARE ==
[2019-05-23 11:50] VITALS: BP 183/96
--- NOTE | 2019-05-23 12:56 | ED Physician Documentation ---
History of Present Illness - Stated complaint Stated Complaint: LT HAND SWELLING - Chief complaint Chief Complaint: Ext Problem - History obtained from History obtained from: Patient, Family - History of Present Illness Timing: How many days ago (2) Pain level max: 5 Pain level now: 5 Improved by: rest Worsened by: movement - Additonal information Additional information: Swelling of the dorsum of the left hand for the past 2 days or so. Does not recall any injury. Does take Eliquis. Worse with movement. Better with rest. Patient is right-handed Review of Systems Constitutional: denies: Fever, Chills Respiratory: denies: Cough GI: denies: Vomiting, Diarrhea Skin: denies: Rash Musculoskeletal: denies: Neck pain, Back pain Neurologic: denies: Headache PD PAST MEDICAL HISTORY - Past Medical History Cardiovascular: Atrial fibrillation : Frequency, Other HEENT: Glaucoma Musculoskeletal: None - Past Surgical History Past Surgical History: Yes General: Appendectomy HEENT: Tonsil/Adenoidectomy - Present Medications Home Medications: Ambulatory Orders Medication Instructions Recorded Confirmed Carvedilol [Coreg] 0 mg PO 05/04/18 Clopidogrel [Plavix] 0 mg PO DAILY 05/04/18 05/04/18 Cyclobenzaprine [Flexeril] 10 mg PO TID PRN #20 tablet 05/04/18 Hydrocodone/Acetaminophen 1 - 2 each PO Q6H PRN #14 tablet 05/04/18 [Hydrocodon-Acetaminophen 5-325] Latanoprost 05/04/18 Lisinopril 0 mg 05/04/18 Solifenacin Succinate [Vesicare] 0 mg PO 05/04/18 Hydrocodone/Acetaminophen 1 each PO Q6H PRN #14 tablet 05/26/18 [Hydrocodon-Acetaminophen 5-325] Meloxicam [Mobic] 7.5 mg PO BID PRN #20 tablet 05/26/18 Apixaban [Eliquis] 2.5 mg PO 05/27/18 05/27/18 Cephalexin [Keflex] 500 mg PO QID #24 capsule 05/27/18 HYDROcod/ACETAM 5/325 [[place] 5/325] 1 tab PO Q6H PRN #15 tablet 06/01/18 dexAMETHasone [Decadron] 4 mg PO DAILY #5 tablet 06/01/18 Colchicine [Colcrys] 1.2 mg PO ONCE #3 tablet 05/23/19 predniSONE [Prednisone] 20 mg PO DAILY #5 tablet 05/23/19 - Allergies Allergies/Adverse Reactions: Allergies Allergy/AdvReac Type Severity Reaction Status Date / Time No Known Drug Allergies Allergy Verified 05/23/19 11:51 - Social History Does the pt smoke?: No Smoking Status: Never smoker Does the pt drink ETOH?: Yes Does the pt have substance abuse?: No - POLST Patient has POLST: No PD ED PE NORMAL - Vitals Vital signs reviewed: Yes - General General: Alert and oriented X 3, No acute distress - HEENT HEENT: Moist mucous membranes - Neck Neck: Supple, no meningeal sign - Derm Derm: Warm and dry - Extremities Extremities: Other (TTP dorsum of the L hand with swelling over 2nd and 3rd MCP joints. NVI) - Neuro Neuro: Alert and oriented X 3 - Psych Psych: Normal mood, Normal affect Results - Vitals Vitals: Vital Signs - 24 hr 05/23/19 11:48 Temperature 35.9 C L Heart Rate 63 Respiratory 16 Rate Blood Pressure 183/96 H O2 Saturation 98 Oxygen O2 Source Room air - Rads (name of study) L hand xray Radiology: Prelim report reviewed, EMP read contemporaneously, See rad report (Soft tissue swelling seen along the dorsum of the dorsum of the hand. No acute osseous abnormality demonstrated. 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 Will place on colchicine and prednisone. Placed in splint for comfort. Neurovascularly intact. He will remove the splint in 2 to 3 days. Patient counseled regarding signs and symptoms for which I believe and urgent re- evaluation would be necessary. Patient with good understanding of and agreement to plan and is comfortable going home at this time This document was made in part using voice recognition software. While efforts are made to proofread this document, sound alike and grammatical errors may occur. No evidence of infection. No evidence of septic joint. Departure - Departure Disposition: Home, Self Care Clinical Impression: Arthritis Condition: Good Instructions: ED Degenerative Joint Disease Follow-Up: your,doctor in 1 week [Other] Prescriptions: Colchicine [Colcrys] 1.2 mg PO ONCE #3 tablet predniSONE [Prednisone] 20 mg PO DAILY #5 tablet Comments: Remove the splint in 3 days. Take the steroids until gone. Return if you worsen. Discharge Date/Time: 05/23/19 13:35
[2019-05-23] MEDS ORDERED: predniSONE 20 MG TABLET PO STA (12:57)
--- NOTE | 2019-05-23 13:09 | XRAY Report ---
Reason: L hand swelling Procedure Date: 05/23/2019 Accession Number: [id number] / [id number] Procedure: XR - Hand 3 View LT CPT Code: FULL RESULT: EXAM: LEFT HAND RADIOGRAPHY EXAM DATE: 05/23/2019 12:45 PM. CLINICAL HISTORY: Left hand swelling. COMPARISON: None. TECHNIQUE: 3 views. FINDINGS: Bones: Bones are osteopenic. No fractures or bone lesions. Joints: Mild osteoarthritic changes are seen in the interphalangeal, MCP, carpometacarpal, and STT joints. No malalignment. Soft Tissues: Soft tissue swelling is seen dorsally in the distal hand region. No radiodense soft tissue abnormality or gas identified. IMPRESSION: 1. Soft tissue swelling seen along the dorsum of the hand. No acute osseous abnormality demonstrated. 2. 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 RADIA
== END 2019-05-23 13:35 | disposition home or self-care (01) ==
LOC: ED 11:38
DX: M19.042 Primary osteoarthritis, left hand (principal)
CPT/HCPCS: 29125; 73130; 99283; 99284; J7512

== ENCOUNTER 2019-06-07 09:29 | Emergency (ER) | payer MEDICARE ==
--- NOTE | 2019-06-07 10:35 | ED Physician Documentation ---
PD HPI URI - Stated complaint Stated Complaint: WEAKNESS/BACK PX - Chief complaint Chief Complaint: General - History obtained from History obtained from: Patient - History of Present Illness Timing - onset: How many weeks ago (1) Timing duration: Weeks (1) Timing details: Gradual onset, Still present, Waxing and waning Associated symptoms: Chills, Dry cough, Other (less appetite, less intake. feeling of general weakness.). No: Fever, Nasal congestion, Sore throat, NVD Contributing factors: Sick contact (other family members with cough and congestion this past week as well.) Improves by: Rest Similar symptoms before: Has not had sx before Recently seen: Not recently seen Review of Systems Constitutional: reports: Myalgias, Fatigue. denies: Fever Nose: reports: Congestion. denies: Rhinorrhea / runny nose Throat: denies: Sore throat Cardiac: denies: Chest pain / pressure, Palpitations Respiratory: reports: Cough. denies: Wheezing GI: reports: Nausea (less appetite). denies: Abdominal Pain, Vomiting, Diarrhea Skin: denies: Rash Musculoskeletal: denies: Neck pain, Back pain Neurologic: reports: Generalized weakness. denies: Focal weakness, Numbness, Near syncope, Altered mental status, Headache PD PAST MEDICAL HISTORY - Past Medical History Past Medical History: Yes Cardiovascular: Atrial fibrillation : Frequency, Other HEENT: Glaucoma Musculoskeletal: None - Past Surgical History Past Surgical History: Yes General: Appendectomy HEENT: Tonsil/Adenoidectomy - Present Medications Home Medications: Ambulatory Orders Medication Instructions Recorded Confirmed Carvedilol [Coreg] 0 mg PO 05/04/18 Clopidogrel [Plavix] 0 mg PO DAILY 05/04/18 05/04/18 Cyclobenzaprine [Flexeril] 10 mg PO TID PRN #20 tablet 05/04/18 Hydrocodone/Acetaminophen 1 - 2 each PO Q6H PRN #14 tablet 05/04/18 [Hydrocodon-Acetaminophen 5-325] Latanoprost 05/04/18 Lisinopril 0 mg 05/04/18 Solifenacin Succinate [Vesicare] 0 mg PO 05/04/18 Hydrocodone/Acetaminophen 1 each PO Q6H PRN #14 tablet 05/26/18 [Hydrocodon-Acetaminophen 5-325] Meloxicam [Mobic] 7.5 mg PO BID PRN #20 tablet 05/26/18 Apixaban [Eliquis] 2.5 mg PO 05/27/18 05/27/18 Cephalexin [Keflex] 500 mg PO QID #24 capsule 05/27/18 HYDROcod/ACETAM 5/325 [Eldred 5/325] 1 tab PO Q6H PRN #15 tablet 06/01/18 dexAMETHasone [Decadron] 4 mg PO DAILY #5 tablet 06/01/18 Colchicine [Colcrys] 1.2 mg PO ONCE #3 tablet 05/23/19 predniSONE [Prednisone] 20 mg PO DAILY #5 tablet 05/23/19 Amox/Clav 875/125 [Augmentin] 1 each PO Q12H #14 tablet 06/07/19 Benzonatate [Tessalon Perle] 100 mg PO TID PRN #25 capsule 06/07/19 Ondansetron Odt [Zofran] 4 mg TL Q6H PRN #15 tablet 06/07/19 dexAMETHasone [Decadron] 4 mg PO DAILY #5 tablet 06/07/19 - Allergies Allergies/Adverse Reactions: Allergies Allergy/AdvReac Type Severity Reaction Status Date / Time No Known Drug Allergies Allergy Verified 05/23/19 11:51 - Social History Does the pt smoke?: No Smoking Status: Never smoker Does the pt drink ETOH?: Yes Does the pt have substance abuse?: No - Immunizations Immunizations are current?: Yes - POLST Patient has POLST: No PD ED PE NORMAL - Vitals Vital signs reviewed: Yes - General General: Alert and oriented X 3, No acute distress, Well developed/nourished - HEENT HEENT: Pharynx benign. No: Moist mucous membranes - Neck Neck: Supple, no meningeal sign, No adenopathy - Cardiac Cardiac: RRR, No murmur - Respiratory Respiratory: Other (no wheezing; has some mild coarse sounds left side. Congested cough. ) - Abdomen Abdomen: Soft, Non tender - Back Back: No CVA TTP - Derm Derm: Normal color, Warm and dry - Extremities Extremities: No deformity, No tenderness to palpate, Normal ROM s pain, No edema, No calf tenderness / cord - Neuro Neuro: Alert and oriented X 3, No motor deficit, Normal speech Results - Vitals Vitals: Vital Signs - 24 hr 09/02/19 09/02/19 09/02/19 09:34 12:05 13:13 Temperature 36.1 C L 38.6 C H Heart Rate 85 74 74 Respiratory 20 18 18 Rate Blood Pressure 144/65 H 123/75 146/75 H O2 Saturation 96 94 96 Oxygen O2 Source Room air - Labs Labs: Laboratory Tests 06/07/19 06/07/19 06/07/19 09:55 09:55 11:22 WBC 9.3 RBC 5.06 Hgb 16.1 Hct 48.3 MCV 95.5 H MCH 31.8 H MCHC 33.3 RDW 13.4 Plt Count 203 MPV 10.6 Neut # (Auto) 7.6 H Lymph # (Auto) 0.7 L [place] # (Auto) 0.9 Eos # (Auto) 0.1 Baso # (Auto) 0.0 Absolute Nucleated RBC 0.00 Nucleated RBC % 0.0 Sodium 134 L Potassium 3.9 Chloride 98 L Carbon Dioxide 25 Anion Gap 11.0 BUN 19 Creatinine 1.5 H Estimated GFR (MDRD) 44 L Glucose 130 H Lactic Acid 0.9 Calcium 9.3 Magnesium 1.9 Total Bilirubin 3.0 H AST 21 ALT 18 Alkaline Phosphatase 70 Total Protein 7.5 Albumin 4.0 Globulin 3.5 Albumin/Globulin Ratio 1.1 Lipase 21 L Urine Color Urine Clarity Urine pH Ur Specific [place] Urine Protein Urine Glucose (UA) Urine Ketones Urine Occult Blood Urine Nitrite Urine Bilirubin Urine Urobilinogen Ur Leukocyte Esterase Urine RBC Urine WBC Ur Squamous Epith Cells Urine Bacteria Urine Mucus Ur Microscopic Review Urine Culture Comments 06/07/19 11:40 WBC RBC Hgb Hct MCV MCH MCHC RDW Plt Count MPV Neut # (Auto) Lymph # (Auto) [place] # (Auto) Eos # (Auto) Baso # (Auto) Absolute Nucleated RBC Nucleated RBC % Sodium Potassium Chloride Carbon Dioxide Anion Gap BUN Creatinine Estimated GFR (MDRD) Glucose Lactic Acid Calcium Magnesium Total Bilirubin AST ALT Alkaline Phosphatase Total Protein Albumin Globulin Albumin/Globulin Ratio Lipase Urine Color DARK YELLOW Urine Clarity CLEAR Urine pH 5.5 Ur Specific [place] 1.020 Urine Protein TRACE Urine Glucose (UA) NEGATIVE Urine Ketones 15 H Urine Occult Blood SMALL H Urine Nitrite NEGATIVE Urine Bilirubin SMALL H Urine Urobilinogen 1 (NORMAL) Ur Leukocyte Esterase NEGATIVE Urine RBC 0-5 Urine WBC 0-3 Ur Squamous Epith Cells FEW Squamous Urine Bacteria Rare Urine Mucus Moderate Strands Ur Microscopic Review INDICATED Urine Culture Comments NOT INDICATED - Rads (name of study) chest xray Radiology: Prelim report reviewed (right greater than left lower lobe infiltrates c/w pneumonia. ), See rad report PD MEDICAL DECISION MAKING - ED course Complexity details: reviewed results (CXR c/w pneumonia. Labs are good without suggestion of sepsis. I think he is stable for outpt treatment and he is agreeable to this. ), considered differential (consider viral illness vs pneumonia or other bacterial infection. ), d/w patient Departure - Departure Disposition: 01 Home, Self Care Clinical Impression: Dehydration, Generalized weakness Pneumonia Qualifiers: Pneumonia type: due to unspecified organism Laterality: bilateral Lung location: lower lobe of lung Qualified Code(s): J18.1 - Lobar pneumonia, unspecified organism Upper respiratory infection Qualifiers: URI type: unspecified URI Qualified Code(s): J06.9 - Acute upper respiratory infection, unspecified Condition: Stable Record reviewed to determine appropriate education?: Yes Instructions: ED Dehydration, ED Pneumonia Adult Prescriptions: Amox/Clav 875/125 [Augmentin] 1 each PO Q12H #14 tablet Benzonatate [Tessalon Perle] 100 mg PO TID PRN #25 capsule PRN Reason: Cough dexAMETHasone [Decadron] 4 mg PO DAILY #5 tablet Ondansetron Odt [Zofran] 4 mg TL Q6H PRN #15 tablet PRN Reason: Nausea / Vomiting Comments: It does seem like you are dehydrated and sounded like you had the upper respiratory infection/viral illness. However on x-ray it does look like you have developed some pneumonia additionally and its likely making you feel worse the last few days. Clinically did not look necessarily sick enough to need to be in the hospital. We should be able to treat this at home. Stay well-hydrated. Use a dancer and if needed for nausea. Decadron steroid daily for 5 days to decrease bronchial inflammation and therefore less coughing and easier breathing. Antibiotic twice daily as directed. Tylenol as needed for pains and fevers. Use Tessalon if needed for cough. Frequent fluids to maintain good hydration. Recheck if not improving well over the next several days and return if worsening. Discharge Date/Time: 06/07/19 13:16
[2019-06-07] MEDS ORDERED: SODIUM CHLORIDE 0.9% 1,000 ML IV ONE ×2 (11:12→12:35)
[2019-06-07] MEDS ORDERED: KETOROLAC 15 MG/ML VIAL IVP STA (11:13)
[2019-06-07] MEDS ORDERED: ACETAMINOPHEN 325 MG TABLET PO STA (11:13)
[2019-06-07 11:24] LABS: BASOPHILS % (AUTO) 0.4 %; EOSINOPHILS # (AUTO) 0.1 10^3/uL (0.0-0.7); EOSINOPHILS % (AUTO) 0.8 %; HGB - HEMOGLOBIN 16.1 g/dL (14.0-18.0); LYMPHOCYTES # (AUTO) 0.7 10^3/uL (1.5-3.5); LYMPHOCYTES % (AUTO) 7.6 %; MEAN CORPUSCULAR HEMOGLOBIN 31.8 pg (27.0-31.0); MEAN CORPUSCULAR HGB CONC 33.3 g/dL (32.0-36.0); MEAN CORPUSCULAR VOLUME 95.5 fL (80.0-94.0); MEAN PLATELET VOLUME 10.6 fL (7.4-11.4); MONOCYTES # (AUTO) 0.9 10^3/uL (0.0-1.0); MONOCYTES % (AUTO) 9.4 %; NEUTROPHILS # (AUTO) 7.6 10^3/uL (1.5-6.6); NEUTROPHILS % (AUTO) 81.2 %; PLT - PLATELET COUNT 203 10^3/uL (130-450); RED BLOOD COUNT 5.06 10^6/uL (4.70-6.10); RED CELL DISTRIBUTION WIDTH 13.4 % (12.0-15.0); WHITE BLOOD COUNT 9.3 x10^3/uL (4.8-10.8)
[2019-06-07 11:33] LABS: ALBUMIN/GLOBULIN RATIO 1.1 (1.0-2.2); CALCIUM 9.3 mg/dL (8.5-10.3); CREATININE 1.5 mg/dL (0.6-1.2); MAGNESIUM 1.9 mg/dL (1.7-2.8); TOTAL PROTEIN 7.5 g/dL (6.7-8.2)
[2019-06-07 11:56] LABS: GLUCOSE, URINE (UA) NEGATIVE (NEGATIVE); KETONES,URINE (UA) 15 mg/dL (NEGATIVE); LEUKOCYTE ESTERASE, URINE NEGATIVE (NEGATIVE); NITRITE,URINE NEGATIVE (NEGATIVE); OCCULT BLOOD,URINE SMALL (NEGATIVE); PH,URINE 5.5 PH (5.0-7.5); PROTEIN,URINE TRACE mg/dL (NEGATIVE); UROBILINOGEN,URINE 1 (NORMAL) E.U./dL (NORMAL)
[2019-06-07 12:07] LABS: BILIRUBIN,URINE SMALL (NEGATIVE); CLARITY,URINE CLEAR (CLEAR); ICTOTEST,URINE POSITIVE
[2019-06-07 12:13] LABS: BACTERIA,URINE Rare /HPF (None Seen); RBC,URINE 0-5 /HPF (0-5); SQUAMOUS EPITHELIAL CELL,UR FEW Squamous (<= Few)
[2019-06-07 12:14] LABS: MUCUS,URINE Moderate Strands
--- NOTE | 2019-06-07 12:14 | XRAY Report ---
Reason: dyspnea/ cough Procedure Date: 06/07/2019 Accession Number: [id number] / [id number] Procedure: XR - Chest 2 View X-Ray CPT Code: 12999 FULL RESULT: EXAM: CHEST RADIOGRAPHY EXAM DATE: 06/07/2019 11:31 AM. CLINICAL HISTORY: Dyspnea/ cough. COMPARISON: None. TECHNIQUE: 2 views. FINDINGS: Lungs/Pleura: Central bronchial wall thickening is seen. Patchy right greater than left lower lung predominant opacities are worrisome for infection. Possible trace bibasilar pleural effusions. No pneumothorax. Mediastinum: Heart size at the upper limit of normal. Tortuous thoracic aorta with atheromatous plaque at the arch seen. Other: None. IMPRESSION: 1. Right greater than left lower lung predominant pulmonary opacities are worrisome for pneumonia. Suggest follow-up to radiographic resolution. [facility]
[2019-06-07] MEDS ORDERED: cefTRIAXone 1 GM VIAL IVP STA (12:35)
[2019-06-07] MEDS ORDERED: DEXAMETHASONE 10 MG/ML VIAL IVP STA (12:41)
[2019-06-07] MEDS ORDERED: BENZONATATE 100 MG CAPSULE PO STA (12:41)
[2019-06-07 13:15] VITALS: BP 146/75
== END 2019-06-07 13:16 | disposition home or self-care (01) ==
LOC: ED 09:29
DX: E86.0 Dehydration (principal); J18.1 Lobar pneumonia, unspecified organism; J06.9 Acute upper respiratory infection, unspecified
CPT/HCPCS: 36415; 71046; 80053; 81001; 83605; 83690; 83735; 85025; 96361; 96374; 96375; 99283; A9270; 81003; 87086